=== PATIENT | male | born 2000 | race Caucasian/White ===

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

== ENCOUNTER 2018-07-04 14:22 | Emergency (ER) | payer SELFPAY ==
[~2018-07-04] VITALS: Ht 160 cm; Wt 63.0 kg
[~2018-07-04 14:22] MED LIST: IBUP-1542 PO
[2018-07-04 15:24] VITALS: BP 155/90; PULSE 78; RESP 18; Ht 160 cm; Wt 63.0 kg
== END 2018-07-04 18:00 | disposition left against medical advice (07) ==
LOC: FTE 14:22
DX: Z53.21 Procedure and treatment not carried out due to patient leaving prior to being seen by health care provider (principal)